=== PATIENT | female | born 1935 | race Caucasian/White ===

== ENCOUNTER 2016-10-21 13:34 | Outpatient (CLI) | payer MEDICARE, OTHER ==
[~2016-10-21] VITALS: Ht 152.4 cm; Wt 59.1 kg
[~2016-10-21 13:34] MED LIST: LASIX20 MG PO; OMEPRAZOLE40 MG PO; POTASSIUM CHLO10 ME1 PO; XANAX XR0.5 MG PO
[2016-10-21 13:55] VITALS: BP 143/62; Ht 152.4 cm; Wt 59.1 kg
--- NOTE | 2016-10-21 14:02 | NUR ---
PROLIA 60MG INJ TO LEFT ARM LOT:[id number] EXP:12/2018
--- NOTE | 2016-10-21 14:15 | NUR ---
DISCHARGE INSTRUCTIONS COMPLETED AND SIGNED.
== END 2016-10-21 14:23 | disposition home or self-care (01) ==
LOC: D.OPS 13:34
DX: M81.0 Age-related osteoporosis without current pathological fracture (principal)

== ENCOUNTER → 2017-03-04 12:40 | Outpatient (CLI) | payer MEDICARE, OTHER ==
[2016-10-21 13:55] VITALS: BMI 25.4
== END | disposition home or self-care (01) ==
LOC: D.CT 12:40
DX: I73.9 Peripheral vascular disease, unspecified (principal)

== ENCOUNTER 2018-08-18 07:40 | Emergency (ER) | payer MEDICARE, OTHER ==
[~2018-08-18] VITALS: Ht 152.4 cm; Wt 56.8 kg
[2018-08-18 07:45] VITALS: Ht 152.4 cm; Wt 56.8 kg
[2018-08-18] MEDS ORDERED: ASPIRIN81 MG PO (07:47)
[2018-08-18] MEDS ORDERED: ZOLOFT25 MG PO (07:48)
[2018-08-18 08:48] LABS: BASOPHILS 0.2 % (0-2); EOSINOPHILS 1.4 % (0-7); HEMATOCRIT 38.7 % (36.0-48.0); IMMATURE GRANULOCYTES 0.1 % (0-5); LYMPHOCYTES 13.6 % (15-50); MCH 32.3 pg (26.0-34.0); MCHC 33.6 g/dL (31.0-37.0); MEAN PLATELET VOLUME 10.5 fL (7.4-10.4); MONOCYTES 7.7 % (2-11); PLATELET COUNT 182 10x3/uL (130-400); RBC 4.03 10x6/uL (4.00-5.40); RDW 13.1 % (11.5-14.5); WBC 8.6 10x3/uL (4.8-10.8)
[2018-08-18 09:01] LABS: ALBUMIN 3.7 g/dL (3.4-5.0); ANION GAP 10.5 mmol/L (8-16); BILIRUBIN - TOTAL 0.38 mg/dL (0.2-1.3); CALCIUM 9.6 mg/dL (8.5-10.1); CARBON DIOXIDE 28.9 mmol/L (21.0-32.0); CREATININE - SERUM 0.8 mg/dL (0.6-1.3); POTASSIUM - SERUM 4.4 mmol/L (3.5-5.1); PROTEIN - SERUM 7.1 g/dL (6.4-8.2)
[2018-08-18 09:16] LABS: APPEARANCE CLEAR (CLEAR); COLOR YELLOW (YELLOW)
[2018-08-18 09:17] LABS: BACTERIA FEW /hpf (NONE SEEN); BILIRUBIN NEGATIVE (NEGATIVE); EPITHELIAL CELLS OCC /hpf (0-5); GLUCOSE NEGATIVE (NEGATIVE); KETONE NEGATIVE (NEGATIVE); MUCUS <1+ /lpf (NONE SEEN); NITRITE NEGATIVE (NEGATIVE); PROTEIN NEGATIVE (NEGATIVE); RED CELLS - URINE OCC /hpf (0-5); UROBILINOGEN NORMAL (NORMAL); WHITE CELLS - URINE OCC /hpf (0-5)
[2018-08-18 10:01] VITALS: BP 148/71
== END 2018-08-18 10:02 | disposition home or self-care (01) ==
LOC: D.ER 07:40
PROVIDERS: Family Medicine
DX: S01.01XA Laceration without foreign body of scalp, initial encounter (principal); W18.2XXA Fall in (into) shower or empty bathtub, initial encounter; Y93.89 Activity, other specified; Y92.012 Bathroom of single-family (private) house as the place of occurrence of the external cause; R51 Headache; M54.2 Cervicalgia

== ENCOUNTER → 2019-03-30 14:30 | Outpatient (CLI) | payer MEDICARE, OTHER ==
[2018-08-18 07:45] VITALS: BMI 24.4
[~2019-03-30 14:30] MED LIST changes: +ASPIRIN81 MG PO; +ZOLOFT25 MG PO
== END | disposition home or self-care (01) ==
LOC: D.MAMMO 11:15
PROVIDERS: ATTEND Family Medicine
DX: Z12.31 Encounter for screening mammogram for malignant neoplasm of breast (principal)

== ENCOUNTER 2019-11-27 22:01 | Inpatient (IN) | payer MEDICARE ==
[~2019-11-27] VITALS: Ht 152.4 cm; Wt 56.2 kg
[2019-11-27 23:06] LABS: BASOPHILS 0.2 % (0-2); EOSINOPHILS 3.2 % (0-7); HEMATOCRIT 35.9 % (36.0-48.0); HEMOGLOBIN 11.9 g/dL (12-16); IMMATURE GRANULOCYTES 0.4 % (0-5); LYMPHOCYTES 9.3 % (15-50); MCH 31.3 pg (26.0-34.0); MCHC 33.1 g/dL (31.0-37.0); MCV 94.5 fL (80.0-100.0); MEAN PLATELET VOLUME 10.2 fL (7.4-10.4); MONOCYTES 5.7 % (2-11); NEUTROPHILS 81.2 % (40-80); PLATELET COUNT 217 10x3/uL (130-400); RDW 12.9 % (11.5-14.5); WBC 11.3 10x3/uL (4.8-10.8)
[2019-11-27 23:13] LABS: APTT 26.2 SECONDS (22.8-39.4); INR 0.9 (0.85-1.17); PROTIME 12.2 SECONDS (11.6-15.0)
[2019-11-27 23:17] LABS: CALC OSMOLALITY 287 mosm/kg (275-300); CALCIUM 8.8 mg/dL (8.5-10.1); CARBON DIOXIDE 28.1 mmol/L (21.0-32.0); CHLORIDE - SERUM 106 mmol/L (98-107); CREATININE - SERUM 0.9 mg/dL (0.6-1.3); POTASSIUM - SERUM 3.9 mmol/L (3.5-5.1); SODIUM 142 mmol/L (136-145); UREA NITROGEN 22 mg/dL (7-18); eGFR NON AFRICAN AMERICAN 63 mL/min (90-120)
[2019-11-27 23:25] LABS: GLUCOSE 142 mg/dL (74-106)
[2019-11-27 23:32] LABS: ALBUMIN 3.2 g/dL (3.4-5.0); ALKALINE PHOSPHATASE 64 U/L (30-120); ALT (SGPT) 22 U/L (10-68); BILIRUBIN - TOTAL 0.26 mg/dL (0.2-1.3); CKMB 1.7 U/L (0.0-3.6); CREATINE KINASE 127 UL (21-215); MAGNESIUM - SERUM 1.8 mg/dL (1.8-2.4); PROTEIN - SERUM 6.3 g/dL (6.4-8.2)
[2019-11-27 23:33] LABS: TROPONIN-I < 0.017 ng/mL (0.000-0.060)
[2019-11-28] VITALS (11 sets, daily range): BP systolic 118–158; BP diastolic 66–89; Ht 152.4 cm; Wt 56.2 kg
[2019-11-28] MEDS ORDERED: PROTONIX40 MG PO (00:29)
[2019-11-28] MEDS ORDERED: CELEXA20 MG PO (00:30)
[2019-11-28] MEDS ORDERED: K-TAB10 MEQ PO (00:30)
[2019-11-28] MEDS ORDERED: ZANAFLEX4 MG PO (00:31)
[2019-11-28] MEDS ORDERED: FUROSEMIDE20 MG PO (00:31)
[2019-11-28] MEDS ORDERED: LIPITOR10 MG PO (00:31)
[2019-11-28] MEDS ORDERED: MIRALAX17 GM PO (00:32)
[2019-11-28] MEDS ORDERED: OS-CAL500 MG PO (00:33)
[2019-11-28] MEDS ORDERED: ASCORBIC ACID500 MG PO (00:33)
[2019-11-28 05:56] LABS: BASOPHILS 0.1 % (0-2); EOSINOPHILS 0.9 % (0-7); HEMATOCRIT 35.1 % (36.0-48.0); HEMOGLOBIN 11.6 g/dL (12-16); IMMATURE GRANULOCYTES 0.2 % (0-5); LYMPHOCYTES 15.6 % (15-50); MCH 31.4 pg (26.0-34.0); MCV 95.1 fL (80.0-100.0); MEAN PLATELET VOLUME 10.2 fL (7.4-10.4); MONOCYTES 9.1 % (2-11); NEUTROPHILS 74.1 % (40-80); PLATELET COUNT 226 10x3/uL (130-400); RBC 3.69 10x6/uL (4.00-5.40); RDW 13.2 % (11.5-14.5); WBC 9.7 10x3/uL (4.8-10.8)
[2019-11-28 06:15] LABS: INR 0.95 (0.85-1.17); PROTIME 12.7 SECONDS (11.6-15.0)
[2019-11-28 06:19] LABS: ANION GAP 10.7 mmol/L (8-16); CALCIUM 8.4 mg/dL (8.5-10.1); CARBON DIOXIDE 28.5 mmol/L (21.0-32.0); CREATININE - SERUM 0.8 mg/dL (0.6-1.3); POTASSIUM - SERUM 4.2 mmol/L (3.5-5.1)
[2019-11-28 09:30] LABS: BILIRUBIN NEGATIVE (NEGATIVE); GLUCOSE NEGATIVE (NEGATIVE); KETONE NEGATIVE (NEGATIVE); NITRITE NEGATIVE (NEGATIVE); SPECIFIC GRAVITY 1.025 (1.005-1.020)
[2019-11-28 09:31] LABS: BACTERIA FEW /hpf (NEGATIVE)
[2019-11-28 09:33] LABS: EPITHELIAL CELLS 0-5 /hpf (0-5); RED CELLS - URINE RARE /hpf (0-5)
[2019-11-28 09:34] LABS: WHITE CELLS - URINE 0-5 /hpf (NEGATIVE)
[2019-11-28 09:55] LABS: % SATURATION 15 % (15-55); IRON 48 ug/dl (35-150); TOTAL IRON BIND CAPACITY 316 ug/dl (260-445); UNSAT IRON BIND CAPACITY 268 ug/dl (150-375)
[2019-11-28 10:21] LABS: FERRITIN 26 ng/mL (3-244); LDH 255 U/L (81-234)
--- NOTE | 2019-11-28 13:14 | OP ---
PATIENT NAME: SAURABH PASCAL MEDICAL RECORD: [id number] :37 LOCATION:D.M3 D.1210 ADMISSION DATE:11/27/19 SURGEON: KRISTIN COCHRAN MD DATE OF OPERATION: 11/28/2019 PREOPERATIVE DIAGNOSIS: Left intertrochanteric hip fracture. POSTOPERATIVE DIAGNOSIS: Left intertrochanteric hip fracture. PROCEDURE: Cephalomedullary fixation of left intertrochanteric hip fracture -- gamma nail. SURGEON: Kristin Cochran MD NANOSCIENCE TECHNICIAN: LANRE Cabello INTRAOPERATIVE COMPLICATIONS: None. SUMMARY OF PATHOLOGIC FINDINGS: Consistent with preoperative radiographs, the patient had intertrochanteric fracture with a small area of reverse obliquity; however, did not feel like it obviated the need for a long gamma nail. Therefore, a short 125 gamma nail was used. OPERATIVE SUMMARY IN DETAIL: After obtaining the appropriate preoperative surgery consent as well as anesthetic consultation, evaluation and clearance, the patient was brought to the operating room and placed on the operating table in a supine position. After adequate general laryngeal mask airway was administered, the patient was placed on the fracture table. All pressure points were well padded. She was secured firmly to the fracture table, right leg was placed in the well leg miramontes, left leg was placed in the traction boot. After the appropriate amount of traction and reduction under fluoroscopy, the left hip was prepped and draped in routine sterile fashion and incision was made above the tip of the greater trochanter. An awl was used to start an entry point. A ball-tipped guidewire was then passed through the femur. Proximal reaming was then followed by nail insertion. The nail was inserted to the appropriate depth and the guide pin for the lag screw was placed on AP and lateral planes, fluoroscopy within 5 mm of the subchondral surface. Appropriate reaming was then followed by placement of the nail. The nail was then compressed. Derotational screw was put in to allow for compression, but not rotation. Having completed this, distal interlocking screw was put in again under fluoroscopy using the interlocking placement guide. Final radiographs were taken and submitted for radiologist review. Wounds were irrigated, closed by LANRE Cabello. Sterile dressings were applied. The patient was awakened and taken to the recovery room in stable condition. All final needle and sponge counts were correct. TRANSINT:[id number] Voice Confirmation ID: [id number] DOCUMENT ID: [id number] OPERATIVE REPORT [id number] SAURABH PASCAL MD, KRISTIN JACKSON at 1314 CC: [id number] DICTATION DATE: 11/28/1944 DEVOPS ARCHITECT: 11/28/19 1307 ADM IN [facility] [address] [place] [address]
[2019-11-28] MEDS ORDERED: ANORO ELLIPTA1 EACH INH (18:15)
[2019-11-29 00:30] VITALS: BP 134/69
[2019-11-29 04:50] VITALS: BP 142/81
[2019-11-29 06:39] LABS: BASOPHILS 0.1 % (0-2); EOSINOPHILS 0.1 % (0-7); HEMATOCRIT 30.6 % (36.0-48.0); IMMATURE GRANULOCYTES 0.4 % (0-5); LYMPHOCYTES 16.8 % (15-50); MCH 31.3 pg (26.0-34.0); MCHC 32.7 g/dL (31.0-37.0); MCV 95.9 fL (80.0-100.0); MEAN PLATELET VOLUME 10.7 fL (7.4-10.4); MONOCYTES 9.7 % (2-11); NEUTROPHILS 72.9 % (40-80); PLATELET COUNT 215 10x3/uL (130-400); RBC 3.19 10x6/uL (4.00-5.40); RDW 13.2 % (11.5-14.5); WBC 9.9 10x3/uL (4.8-10.8)
[2019-11-29 06:51] LABS: ANION GAP 9.5 mmol/L (8-16); CALCIUM 8.2 mg/dL (8.5-10.1); CARBON DIOXIDE 28.5 mmol/L (21.0-32.0); CREATININE - SERUM 0.9 mg/dL (0.6-1.3)
[2019-11-29 07:22] VITALS: BP 151/71
--- NOTE | 2019-11-29 10:06 | MORECARE ---
CASE MANAGEMENT DISCHARGE SUMMARY PATIENT: SAURABH PASCAL UNIT: [id number] ADM DATE: 11/27/19 AGE: 84 : 36 SEX: F ROOM/BED: D.1210 AUTHOR: ZULEYMA,DOC PHYSICIAN: REFERRING PHYSICIAN: KRISTIN COCHRAN MD DATE OF SERVICE: 11/29/19 Discharge Plan Patient Name: SAURABH PASCAL Facility: [facility]:[place] : 1935 Planned Disposition: Anticipated Discharge Date: Discharge Date: Expected LOS: Initial Reviewer: [email or web address] Initial Review Date: 11/28/2019 Generated: 11/29/19 11:05 am Comments DCP- Discharge Planning Updated by [email or web address]: Kailey Lara on 11/29/19 9:[address] CM met with patient to discuss initial discharge planning. Patient is in agreement to proceed with the assessment. Patient reports that she lives at home alone, independently with her dog and cat. Patient is alert/oriented. Stairs/steps: 0. PCP: Dr. Velázquez. Pharmacy: [facility]. HHS: No. DME: Walker, Cane, Shower bench. Patient gives permission to speak with sister. Emergency contact: Bianca Mendez (sister) [phone]. 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 Patient states she has no one else who can come into the home to assist her. CM discussed the availability of HH, Rehab, DME services. Patient is unsure of DC needs at this time. States "It's according to how I do when I get up." Patient denies being hospitalized within the past 30 days. Patient denies the use of community resources QUARRY SUPERVISOR DIMENSION STONE. Transportation at time of discharge: Bianca Mendez (sister). CM will follow and assist PRN with further DC plans. DCPIA - Discharge Planning Initial Assessment Updated by [email or web address]: Kailey Lara on 11/29/19 10:03 am * Is the patient Alert and Oriented? Yes * How many steps to enter\\exit or inside your home? * PCP Dr. 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 Yes * Community resources currently utilized None * Additional services required to return to the preadmission environment? Yes * Can the patient safely return to the preadmission environment? No * Has this patient been hospitalized within the prior 30 days at any hospital? No Patient Name: SAURABH PASCAL Page [id number] at 1006 All edits/amendments must be made on the electronic document DICTATION DATE: 11/29/19 100 COATING OPERATOR: LUDY 11/29/19 100 RPT#: [id number] DC DATE: STATUS: ADM IN [facility] [address] [place] [address] END OF REPORT
--- NOTE | 2019-11-29 10:15 | MORECARE ---
CASE MANAGEMENT DISCHARGE SUMMARY PATIENT: SAURABH PASCAL UNIT: [id number] ADM DATE: 11/27/19 AGE: 84 : 36 SEX: F ROOM/BED: D.1210 AUTHOR: ZULEYMA,DOC PHYSICIAN: REFERRING PHYSICIAN: KRISTIN COCHRAN MD DATE OF SERVICE: 11/29/19 Discharge Plan Patient Name: SAURABH PASCAL Facility: [facility]:[place] : 1935 Planned Disposition: Anticipated Discharge Date: Discharge Date: Expected LOS: Initial Reviewer: [email or web address] Initial Review Date: 11/28/2019 Generated: 11/29/19 11:14 am Comments DCP- Discharge Planning Updated by [email or web address]: Kailey Lara on 11/29/19 9:[address] CM met with patient to discuss initial discharge planning. Patient is in agreement to proceed with the assessment. Patient reports that she lives at home alone, independently with her dog and cat. Patient is alert/oriented. Stairs/steps: 0. PCP: Dr. Velázquez. Pharmacy: [facility]. HHS: No. DME: Walker, Cane, Shower bench. Patient gives permission to speak with sister. Emergency contact: Bianca Mendez (sister) [phone]. 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 Patient states she has no one else who can come into the home to assist her. CM discussed the availability of HH, Rehab, DME services. Patient is unsure of DC needs at this time. States "It's according to how I do when I get up." Patient denies being hospitalized within the past 30 days. Patient denies the use of community resources PICTURE FRAMES INSPECTOR. Transportation at time of discharge: Bianca Mendez (sister). CM will follow and assist PRN with further DC plans. DCPIA - Discharge Planning Initial Assessment Updated by [email or web address]: Kailey Lara on 11/29/19 10:03 am * Is the patient Alert and Oriented? Yes * How many steps to enter\\exit or inside your home? * PCP Dr. 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 Yes * Community resources currently utilized None * Additional services required to return to the preadmission environment? Yes * Can the patient safely return to the preadmission environment? No * Has this patient been hospitalized within the prior 30 days at any hospital? No Last DP export: 11/29/19 9:06 am Patient Name: SAURABH PASCAL Page [id number] at 1015 All edits/amendments must be made on the electronic document DICTATION DATE: 11/29/19 1014 MASTER CARPENTER: LUDY 11/29/19 1014 RPT#: [id number] DC DATE: STATUS: ADM IN [facility] [address] [place] [address] END OF REPORT
[2019-11-29 12:08] VITALS: BP 150/68
[2019-11-29 16:12] VITALS: BP 126/80
--- NOTE | 2019-11-29 17:34 | MORECARE ---
CASE MANAGEMENT DISCHARGE SUMMARY PATIENT: EMANI PASCAL UNIT: [id number] ADM DATE: 11/27/19 AGE: 84 : 36 SEX: F ROOM/BED: D.1210 AUTHOR: ZULEYMA,DOC PHYSICIAN: REFERRING PHYSICIAN: KRISTIN COCHRAN MD DATE OF SERVICE: 11/29/19 Discharge Plan Patient Name: EMANI PASCAL Facility: [facility]:[place] : 1935 Planned Disposition: Anticipated Discharge Date: Discharge Date: Expected LOS: Initial Reviewer: [email or web address] Initial Review Date: 11/28/2019 Generated: 11/29/19 6:33 pm Comments DCP- Discharge Planning Updated by [email or web address]: Kailey Lara on 11/29/19 4:[address] CM met with patient again regarding therapy options. Patient states "I would like to stay here if my insurance will cover it." Patient's insurance will require prior-authorization. CM left a VM for Kristy in rehab. DCP- Discharge Planning Updated by [email or web address]: Kailey Lara on 11/29/19 9:[address] CM met with patient to discuss initial discharge planning. Patient is in agreement to proceed with the assessment. Patient reports that she lives at home alone, independently with her dog and cat. Patient is alert/oriented. Stairs/steps: 0. PCP: Dr. Velázquez. Pharmacy: [facility]. HHS: No. DME: Walker, Cane, Shower bench. Patient gives permission to speak with sister. Emergency contact: Bianca Mendez (sister) [phone]. 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 Patient states she has no one else who can come into the home to assist her. CM discussed the availability of HH, Rehab, DME services. Patient is unsure of DC needs at this time. States "It's according to how I do when I get up." Patient denies being hospitalized within the past 30 days. 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 Transportation at time of discharge: Bianca Mendez (sister). CM will follow and assist PRN with further DC plans. DCPIA - Discharge Planning Initial Assessment Updated by [email or web address]: Kailey Lara on 11/29/19 10:03 am * Is the patient Alert and Oriented? Yes * How many steps to enter\\exit or inside your home? * PCP Dr. Velázquez * Pharmacy [facility] for [facility] * Preadmission Environment Home Alone * ADLs Independent * Equipment Cane * Other Equipment Walker, Shower chair, cane * List name and contact numbers for known caregivers / representatives who currently or will assist patient after discharge: Bianca Mendez (sister) [phone] * Verbal permission to speak to the caregivers and representatives has been obtained from the patient. Yes * Community resources currently utilized None * Additional services required to return to the preadmission environment? Yes * Can the patient safely return to the preadmission environment? No * Has this patient been hospitalized within the prior 30 days at any hospital? No Coverage Notice Reviewer: [id number] - Kailey Lara Notice Issued Date-Time: 11/29/2019 17:27 Notice Type: Patient Choice Letter Notice Delivered To: Patient Relationship to Patient: Self All Source Intelligence Analyst Name: Emani Pascal Delivery Method: HAND - Hand Delivered She Days: Prior Verbal Notification: Recipient Understood Notice: Yes Recipient Signature: Med Rec Note Co-signed by Attending: Coverage Notice Comment: Patient choice signed for SENIOR LEAD JAVA DEVELOPER Rehab. Last DP export: 11/29/19 9:15 am Patient Name: EMANI PASCAL Page 31289 at 1734 All edits/amendments must be made on the electronic document DICTATION DATE: 11/29/191732 CATALYST UNIT OPERATOR: LUDY 11/29/191732 RPT#: [id number] DC DATE: STATUS: ADM IN [facility] [address] [place] [address] END OF REPORT
[2019-11-29 20:00] VITALS: BP 138/59
[2019-11-30 00:01] VITALS: BP 99/45
[2019-11-30 04:38] VITALS: BP 122/68
[2019-11-30 07:31] VITALS: BP 152/65
[2019-11-30 09:00] LABS: BASOPHILS 0.2 % (0-2); EOSINOPHILS 1.8 % (0-7); HEMATOCRIT 27.7 % (36.0-48.0); HEMOGLOBIN 9.1 g/dL (12-16); IMMATURE GRANULOCYTES 0.3 % (0-5); MCH 31.3 pg (26.0-34.0); MCHC 32.9 g/dL (31.0-37.0); MCV 95.2 fL (80.0-100.0); MEAN PLATELET VOLUME 10.9 fL (7.4-10.4); MONOCYTES 8.6 % (2-11); NEUTROPHILS 73.1 % (40-80); PLATELET COUNT 177 10x3/uL (130-400); RBC 2.91 10x6/uL (4.00-5.40); RDW 13.1 % (11.5-14.5); WBC 9.7 10x3/uL (4.8-10.8)
[2019-11-30 09:03] LABS: ANION GAP 11.4 mmol/L (8-16); CALCIUM 8.3 mg/dL (8.5-10.1); CARBON DIOXIDE 27.6 mmol/L (21.0-32.0); CREATININE - SERUM 0.8 mg/dL (0.6-1.3)
[2019-11-30 11:52] VITALS: BP 114/66
--- NOTE | 2019-11-30 14:35 | MORECARE ---
CASE MANAGEMENT DISCHARGE SUMMARY PATIENT: EMANI PASCAL UNIT: [id number] ADM DATE: 11/27/19 AGE: 84 : 36 SEX: F ROOM/BED: D.1210 AUTHOR: ZULEYMA,DOC PHYSICIAN: REFERRING PHYSICIAN: KRISTIN COCHRAN MD DATE OF SERVICE: 11/30/19 Discharge Plan Patient Name: EMANI PASCAL Facility: [facility]:[place] : 1935 Planned Disposition: Anticipated Discharge Date: Discharge Date: Expected LOS: Initial Reviewer: [email or web address] Initial Review Date: 11/28/2019 Generated: 11/30/19 3:34 pm Comments DCP- Discharge Planning Updated by [email or web address]: Kailey Lara on 11/29/19 4:[address] CM met with patient again regarding therapy options. Patient states "I would like to stay here if my insurance will cover it." Patient's insurance will require prior-authorization. CM left a VM for Kristy in rehab. DCP- Discharge Planning Updated by [email or web address]: Kailey Lara on 11/29/19 9:[address] CM met with patient to discuss initial discharge planning. Patient is in agreement to proceed with the assessment. Patient reports that she lives at home alone, independently with her dog and cat. Patient is alert/oriented. Stairs/steps: 0. PCP: Dr. Velázquez. Pharmacy: [facility]. HHS: No. DME: Walker, Cane, Shower bench. Patient gives permission to speak with sister. Emergency contact: Bianca Mendez (sister) [phone]. 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 Patient states she has no one else who can come into the home to assist her. CM discussed the availability of HH, Rehab, DME services. Patient is unsure of DC needs at this time. States "It's according to how I do when I get up." Patient denies being hospitalized within the past 30 days. 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 Transportation at time of discharge: Bianca Mendez (sister). CM will follow and assist PRN with further DC plans. DCPIA - Discharge Planning Initial Assessment Updated by [email or web address]: Kailey Lara on 11/29/19 10:03 am * Is the patient Alert and Oriented? Yes * How many steps to enter\\exit or inside your home? * PCP Dr. Velázquez * Pharmacy [facility] for intermediate * Preadmission Environment Home Alone * ADLs Independent * Equipment Cane * Other Equipment Walker, Shower chair, cane * List name and contact numbers for known caregivers / representatives who currently or will assist patient after discharge: Bianca Mendez (sister) [phone] * Verbal permission to speak to the caregivers and representatives has been obtained from the patient. Yes * Community resources currently utilized None * Additional services required to return to the preadmission environment? Yes * Can the patient safely return to the preadmission environment? No * Has this patient been hospitalized within the prior 30 days at any hospital? No Coverage Notice Reviewer: [email or web address] Erin Lara Notice Issued Date-Time: 11/29/2019 17:27 Notice Type: Patient Choice Letter Notice Delivered To: Patient Relationship to Patient: Self Floor Surfacer Name: Emani Pascal Delivery Method: HAND - Hand Delivered She Days: Prior Verbal Notification: Recipient Understood Notice: Yes Recipient Signature: Med Rec Note Co-signed by Attending: Coverage Notice Comment: Patient choice signed for COLLAR POINTER Rehab. Reviewer: [email or web address] Erin Lara Notice Issued Date-Time: 11/30/2019 14:30 Notice Type: IM Discharge Notice Notice Delivered To: Patient Relationship to Patient: Self Floor Surfacer Name: Emani Pascal Delivery Method: - She Days: Prior Verbal Notification: Recipient Understood Notice: Recipient Signature: Med Rec Note Co-signed by Attending: Coverage Notice Comment: Last DP export: 11/29/19 4:34 pm Patient Name: EMANI PASCAL Page 55391 at 1435 All edits/amendments must be made on the electronic document DICTATION DATE: 11/30/191433 MILL HAND PLATE MILL: LUDY 11/30/191433 RPT#: [id number] DC DATE: STATUS: ADM IN [facility] [address] [place] [address] END OF REPORT
--- NOTE | 2019-11-30 16:12 | MORECARE ---
CASE MANAGEMENT DISCHARGE SUMMARY PATIENT: EMANI PASCAL UNIT: [id number] ADM DATE: 11/27/19 AGE: 84 : 36 SEX: F ROOM/BED: D.1210 AUTHOR: ZULEYMA,DOC PHYSICIAN: REFERRING PHYSICIAN: KRISTIN COCHRAN MD DATE OF SERVICE: 11/30/19 Discharge Plan Patient Name: EMANI PASCAL Facility: [facility]:[place] : 1935 Planned Disposition: Anticipated Discharge Date: Discharge Date: Expected LOS: Initial Reviewer: [id number] Initial Review Date: 11/28/2019 Generated: 11/30/19 5:12 pm Comments DCP- Discharge Planning Updated by [email or web address]: Kailey Lara on 11/29/19 4:[address] CM met with patient again regarding therapy options. Patient states "I would like to stay here if my insurance will cover it." Patient's insurance will require prior-authorization. CM left a VM for Kristy in rehab. DCP- Discharge Planning Updated by [id number]: Kailey Lara on 11/29/19 9:[address] CM met with patient to discuss initial discharge planning. Patient is in agreement to proceed with the assessment. Patient reports that she lives at home alone, independently with her dog and cat. Patient is alert/oriented. Stairs/steps: 0. PCP: Dr. Velázquez. Pharmacy: [facility]. HHS: No. DME: Walker, Cane, Shower bench. Patient gives permission to speak with sister. Emergency contact: Bianca Mendez (sister) [phone]. 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 Patient states she has no one else who can come into the home to assist her. CM discussed the availability of HH, Rehab, DME services. Patient is unsure of DC needs at this time. States "It's according to how I do when I get up." Patient denies being hospitalized within the past 30 days. Patient denies the use of community resources PSYCHIATRIC TECHNICIAN. Transportation at time of discharge: Bianca Mendez (sister). CM will follow and assist PRN with further DC plans. DCPIA - Discharge Planning Initial Assessment Updated by [email or web address]: Kailey Lara on 11/29/19 10:03 am * Is the patient Alert and Oriented? Yes * How many steps to enter\\exit or inside your home? * PCP Dr. Velázquez * Pharmacy [facility] for half-way * Preadmission Environment Home Alone * ADLs Independent * Equipment Cane * Other Equipment Walker, Shower chair, cane * List name and contact numbers for known caregivers / representatives who currently or will assist patient after discharge: Bianca Mendez (sister) [phone] * Verbal permission to speak to the caregivers and representatives has been obtained from the patient. Yes * Community resources currently utilized None * Additional services required to return to the preadmission environment? Yes * Can the patient safely return to the preadmission environment? No * Has this patient been hospitalized within the prior 30 days at any hospital? No Coverage Notice Reviewer: [email or web address] Erin Lara Notice Issued Date-Time: 11/29/2019 17:27 Notice Type: Patient Choice Letter Notice Delivered To: Patient Relationship to Patient: Self Lab Scientist Name: Emani Pascal Delivery Method: HAND - Hand Delivered She Days: Prior Verbal Notification: Recipient Understood Notice: Yes Recipient Signature: Med Rec Note Co-signed by Attending: Coverage Notice Comment: Patient choice signed for MARKER MACHINE ATTENDANT Rehab. Reviewer: [email or web address] Erin Lara Notice Issued Date-Time: 11/30/2019 15:31 Notice Type: IM Discharge Notice Notice Delivered To: Patient Relationship to Patient: Self Lab Scientist Name: Emani Pascal Delivery Method: - She Days: Prior Verbal Notification: Recipient Understood Notice: Recipient Signature: Med Rec Note Co-signed by Attending: Coverage Notice Comment: Last DP export: 11/30/19 1:35 pm Patient Name: EMANI PASCAL Page [id number] at 1612 All edits/amendments must be made on the electronic document DICTATION DATE: 11/30/19 161 SENIOR GAMES TECHNICIAN: LUDY 11/30/191611 RPT#: [id number] DC DATE: STATUS: ADM IN [facility] [address] [place] [address] END OF REPORT
--- NOTE | 2019-11-30 16:23 | MORECARE ---
CASE MANAGEMENT DISCHARGE SUMMARY PATIENT: EMANI PASCAL UNIT: [id number] ADM DATE: 11/27/19 AGE: 84 : 36 SEX: F ROOM/BED: D.1210 AUTHOR: ZULEYMA,DOC PHYSICIAN: REFERRING PHYSICIAN: KRISTIN COCHRAN MD DATE OF SERVICE: 11/30/19 Discharge Plan Patient Name: EMANI PASCAL Facility: [facility]:[place] : 1935 Planned Disposition: Anticipated Discharge Date: Discharge Date: Expected LOS: Initial Reviewer: [email or web address] Initial Review Date: 11/28/2019 Generated: 11/30/19 5:22 pm Comments DCP- Discharge Planning Updated by [id number]: Kailey Lara on 11/30/19 3:[address] CM contacted Megan, with [facility], regarding insurance prior authorization, all the information has been faxed in, now just waiting on an authorization. DCP- Discharge Planning Updated by [email or web address]: Kailey Lara on 11/29/19 4:[address] CM met with patient again regarding therapy options. Patient states "I would like to stay here if my insurance will cover it." Patient's insurance will require prior-authorization. CM left a for Kristy in rehab. DCP- Discharge Planning Updated by [id number]: Kailey Lara on 11/29/19 9:[address] CM met with patient to discuss initial discharge planning. Patient is in agreement to proceed with the assessment. Patient reports that she lives at home alone, independently with her dog and cat. Patient is alert/oriented. Stairs/steps: 0. PCP: Dr. Velázquez. Pharmacy: [facility]. HHS: No. DME: Walker, Cane, Shower bench. Patient gives permission to speak with sister. Emergency contact: Bianca Mendez (sister) [phone]. 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 Patient states she has no one else who can come into the home to assist her. CM discussed the availability of HH, Rehab, DME services. Patient is unsure of DC needs at this time. States "It's according to how I do when I get up." Patient denies being hospitalized within the past 30 days. Patient denies the use of community resources HOUSING PROPERTY MANAGER. Transportation at time of discharge: Bianca Mendez (sister). CM will follow and assist PRN with further DC plans. DCPIA - Discharge Planning Initial Assessment Updated by [email or web address]: Kailey Lara on 11/29/19 10:03 am * Is the patient Alert and Oriented? Yes * How many steps to enter\\exit or inside your home? * PCP Dr. Velázquez * Pharmacy [facility] for [facility] * Preadmission Environment Home Alone * ADLs Independent * Equipment Cane * Other Equipment Walker, Shower chair, cane * List name and contact numbers for known caregivers / representatives who currently or will assist patient after discharge: Bianca Mendez (sister) [phone] * Verbal permission to speak to the caregivers and representatives has been obtained from the patient. Yes * Community resources currently utilized None * Additional services required to return to the preadmission environment? Yes * Can the patient safely return to the preadmission environment? No * Has this patient been hospitalized within the prior 30 days at any hospital? No Coverage Notice Reviewer: [email or web address] Erin Lara Notice Issued Date-Time: 11/29/2019 17:27 Notice Type: Patient Choice Letter Notice Delivered To: Patient Relationship to Patient: Self Electromechanical Technician Name: Emani Pascal Delivery Method: HAND - Hand Delivered She Days: Prior Verbal Notification: Recipient Understood Notice: Yes Recipient Signature: Med Rec Note Co-signed by Attending: Coverage Notice Comment: Patient choice signed for [facility]. Reviewer: [id number] Erin Lara Notice Issued Date-Time: 11/30/2019 15:31 Notice Type: IM Discharge Notice Notice Delivered To: Patient Relationship to Patient: Self Electromechanical Technician Name: Emani Pascal Delivery Method: - She Days: Prior Verbal Notification: Recipient Understood Notice: Recipient Signature: Med Rec Note Co-signed by Attending: Coverage Notice Comment: Last DP export: 11/30/19 3:12 pm Patient Name: EMANI PASCAL Page [id number] at 1623 All edits/amendments must be made on the electronic document DICTATION DATE: 11/30/191621 DIRECTOR COMMUNICATIONS: LUDY 11/30/191621 RPT#: [id number] DC DATE: STATUS: ADM IN [facility] [address] [place] [address] END OF REPORT
[2019-11-30 17:45] VITALS: BP 137/59
[2019-11-30 19:35] VITALS: BP 156/54
[2019-12-01 00:30] VITALS: BP 122/66
[2019-12-01 05:01] VITALS: BP 112/49
[2019-12-01 07:20] VITALS: BP 139/55
[2019-12-01 07:52] LABS: BASOPHILS 0.3 % (0-2); EOSINOPHILS 2.7 % (0-7); HEMOGLOBIN 8.7 g/dL (12-16); IMMATURE GRANULOCYTES 0.3 % (0-5); LYMPHOCYTES 15.6 % (15-50); MCH 31.8 pg (26.0-34.0); MCHC 33.5 g/dL (31.0-37.0); MCV 94.9 fL (80.0-100.0); MEAN PLATELET VOLUME 10.5 fL (7.4-10.4); MONOCYTES 9.3 % (2-11); NEUTROPHILS 71.8 % (40-80); PLATELET COUNT 183 10x3/uL (130-400); RBC 2.74 10x6/uL (4.00-5.40); RDW 12.9 % (11.5-14.5); WBC 7.5 10x3/uL (4.8-10.8)
[2019-12-01 07:54] LABS: CALC OSMOLALITY 279 mosm/kg (275-300); CALCIUM 7.9 mg/dL (8.5-10.1); CARBON DIOXIDE 28.9 mmol/L (21.0-32.0); CHLORIDE - SERUM 105 mmol/L (98-107); CREATININE - SERUM 0.7 mg/dL (0.6-1.3); GLUCOSE 110 mg/dL (74-106); POTASSIUM - SERUM 3.9 mmol/L (3.5-5.1); SODIUM 140 mmol/L (136-145); UREA NITROGEN 12 mg/dL (7-18); eGFR NON AFRICAN AMERICAN 85 mL/min (90-120)
[2019-12-01] MEDS ORDERED: ELIQUIS2.5 MG PO (10:26)
[2019-12-01] MEDS ORDERED: HYDROCODON-ACE1 EA10 PO (10:26)
--- NOTE | 2019-12-01 17:15 | MORECARE ---
CASE MANAGEMENT DISCHARGE SUMMARY PATIENT: EMANI PASCAL UNIT: [id number] ADM DATE: 11/27/19 AGE: 84 : 36 SEX: F ROOM/BED: D.1210 AUTHOR: ZULEYMA,DOC PHYSICIAN: REFERRING PHYSICIAN: KRISTIN COCHRAN MD DATE OF SERVICE: 12/01/19 Discharge Plan Patient Name: EMANI PASCAL Facility: [facility]:[place] : 1935 Planned Disposition: Anticipated Discharge Date: Discharge Date: 12/01/2019 Expected LOS: Initial Reviewer: [email or web address] Initial Review Date: 11/28/2019 Generated: 12/01/19 6:15 pm Comments DCP- Discharge Planning Updated by [email or web address]: Kailey Lara on 11/30/19 3:[address] CM contacted Megan, with [facility], regarding insurance prior authorization, all the information has been faxed in, now just waiting on an authorization. DCP- Discharge Planning Updated by [email or web address]: Kailey Lara on 11/29/19 4:[address] CM met with patient again regarding therapy options. Patient states "I would like to stay here if my insurance will cover it." Patient's insurance will require prior-authorization. CM left a VM for Kristy in rehab. DCP- Discharge Planning Updated by [email or web address]: Kailey Lara on 11/29/19 9:[address] CM met with patient to discuss initial discharge planning. Patient is in agreement to proceed with the assessment. Patient reports that she lives at home alone, independently with her dog and cat. Patient is alert/oriented. Stairs/steps: 0. PCP: Dr. Velázquez. Pharmacy: [facility]. HHS: No. DME: Walker, Cane, Shower bench. Patient gives permission to speak with sister. Emergency contact: Bianca Mendez (sister) [phone]. 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 Patient states she has no one else who can come into the home to assist her. CM discussed the availability of HH, Rehab, DME services. Patient is unsure of DC needs at this time. States "It's according to how I do when I get up." Patient denies being hospitalized within the past 30 days. Patient denies the use of community resources DOOR OPENER. Transportation at time of discharge: Bianca Mendez (sister). CM will follow and assist PRN with further DC plans. DCPIA - Discharge Planning Initial Assessment Updated by [id number]: Kailey Lara on 11/29/19 10:03 am * Is the patient Alert and Oriented? Yes * How many steps to enter\\exit or inside your home? * PCP Dr. 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 Yes * Community resources currently utilized None * Additional services required to return to the preadmission environment? Yes * Can the patient safely return to the preadmission environment? No * Has this patient been hospitalized within the prior 30 days at any hospital? No Coverage Notice Reviewer: [email or web address] Erin Lara Notice Issued Date-Time: 11/29/2019 17:27 Notice Type: Patient Choice Letter Notice Delivered To: Patient Relationship to Patient: Self Roll Sheeting Cutter Name: Emani Pascal Delivery Method: HAND - Hand Delivered She Days: Prior Verbal Notification: Recipient Understood Notice: Yes Recipient Signature: Med Rec Note Co-signed by Attending: Coverage Notice Comment: Patient choice signed for [facility]. Reviewer: [email or web address] Erin Lara Notice Issued Date-Time: 11/30/2019 15:31 Notice Type: IM Discharge Notice Notice Delivered To: Patient Relationship to Patient: Self Roll Sheeting Cutter Name: Emani Pascal Delivery Method: - She Days: Prior Verbal Notification: Recipient Understood Notice: Recipient Signature: Med Rec Note Co-signed by Attending: Coverage Notice Comment: Last DP export: 11/30/19 3:23 pm Patient Name: EMANI PASCAL Page 53710 at 1715 All edits/amendments must be made on the electronic document DICTATION DATE: 12/01/191714 PILL PACKER: LUDY 12/01/191714 RPT#: [id number] DC DATE:12/01/19 STATUS: DIS IN [facility] [address] [place] [address] END OF REPORT
== END 2019-12-01 15:09 | DRG 482 ==
LOC: D.ER 22:01 → D.M3 23:08
PROVIDERS: Family Medicine; ADMIT Orthopaedic Surgery; ATTEND Orthopaedic Surgery
PROC: 0QHC36Z Insertion of Intramedullary Internal Fixation Device into Left Lower Femur, Percutaneous Approach (ICD-10-PCS; principal; 2019-11-28 12:45)
DX: S72.142A Displaced intertrochanteric fracture of left femur, initial encounter for closed fracture (principal); W18.30XA Fall on same level, unspecified, initial encounter; J44.9 Chronic obstructive pulmonary disease, unspecified; I10 Essential (primary) hypertension; R33.9 Retention of urine, unspecified; D64.9 Anemia, unspecified

== ENCOUNTER 2019-12-01 14:50 | Inpatient (IN) | payer MEDICARE ==
[~2019-12-01] VITALS: Ht 152.4 cm; Wt 56.2 kg
--- NOTE | ~2019-12-01 | RHP ---
PATIENT: SAURABH PASCAL MEDICAL RECORD: [id number] ACCOUNT: [id number] [facility] ADMISSION DATE: 12/01/19 REHABILITATION HISTORY AND PHYSICAL EXAMINATION POST ADMISSION PHYSICIAN EXAMINATION POST ADMISSION PHYSICAL EXAMINATION AND HISTORY AND PHYSICAL DATE OF ADMISSION: 12/01/2019 ADMITTING DIAGNOSIS: Left hip fracture. HISTORY OF PRESENT ILLNESS: The patient is an 84-year-old female patient, who presented to the Emergency Room on November 26 with left hip pain after falling to the floor from a standing position. She had pain of 9/10. She had aching pressure. It was exacerbated by movement or any type of palpation. The patient had x-rays, which showed a left intertrochanteric fracture. She was admitted to Dr. Fitzgerald. She had a cephalomedullary fixation of the left intertrochanteric hip fracture with a gamma nail. Postop, she had a little bit of blood loss anemia, urinary retention, and hypertension. She has got a history of vertigo and leaky valve, COPD, arthritis, and depression. Previously, she was living alone and independent with ADLs and mobility. Currently, she is mod-to-max assist for ADLs and mobility. She has some upper extremity weakness. The patient has toe-touch weightbearing status, poor balance making it difficult to maintain safety and she is a fall risk. She wants to return back home at her prior level of functioning. Comorbidities include left intertrochanteric hip fracture, urinary retention, hypertension, hyperglycemia, acute blood loss anemia, scalp laceration, musculoskeletal pain, leaky valve, COPD, arthritis, and depression. PAST MEDICAL HISTORY: Significant for cataracts. She has got a history of a leaky valve. She has got a history of COPD, arthritis, osteoporosis, scoliosis, depression. PAST SURGICAL HISTORY: Includes cataract surgery, bilateral left knee scope. She has had rhinoplasty. She has had a tubal ligation, ORIF of her right wrist, and knee replacement. ALLERGIES: CODEINE. CURRENT MEDICATIONS: Include potassium 10 mEq daily, polyethylene glycol 17 grams in 8 ounces of water daily, Lasix 20 mg daily, citalopram 20 mg daily, calcium carbonate 1000 mg daily, aspirin chewable 81 mg daily, vitamin C 500 mg daily, Tums 500 mg every 4 hours p.r.n., Protonix 40 mg daily, Zanaflex 4 mg at bedtime, atorvastatin 10 mg daily, Eliquis 2.5 mg b.i.d., Brovana 15 mcg b.i.d., and Waverly 10/325 one tab every 4 hours p.r.n. HABITS: No current alcohol or tobacco use. FAMILY HISTORY: Noncontributory. SOCIAL HISTORY: The patient hopes to return back home and get back to her prior level of functioning. REVIEW OF SYSTEMS: HISTORY AND PHYSICAL [id number] SAURABH PASCAL GENERAL: Does complain of little weakness and fatigue. HEENT: Denies cold, cough, or congestion. CARDIOVASCULAR: Denies chest pain. PHYSICAL EXAMINATION: VITAL SIGNS: Stable, afebrile. GENERAL: Elderly female, in no acute distress upon exam. HEENT: Normocephalic and atraumatic. Mucosa moist. NECK: Supple. No lymphadenopathy. LUNGS: Clear in the upper tuttle. HEART: Regular rate and rhythm. She does have a holosystolic murmur. ABDOMEN: Soft, benign, and nondistended. Positive bowel sounds times 4. EXTREMITIES: No clubbing, cyanosis or edema. NEUROLOGIC: She is intact. Her postop area looks pretty good. LABORATORY DATA: White count 7.5, H&H 8.7 and 26.4, and platelet count is 199. Sodium 141, potassium 4.0, BUN and creatinine of 12 and 0.6, and blood sugar is noted to be 110. ASSESSMENT: This is an 84-year-old female patient admitted to the rehab with a working diagnosis of left hip fracture, status post open reduction and internal fixation. The patient has potential to make improvement. We will institute the multidisciplinary therapies including, but not limited to, physical, occupational, respiratory, speech, nutritional services, prosthetics, and orthotics. Given her complex medical condition and risks for more complications, rehabilitation services cannot be provided at a lower level of care such as a skilled nurse facility. PLAN: 1. Admit to [facility] for an inpatient therapy to include the following disciplines; A. Physical therapy to improve gait, all transfer skills, and bed mobility to modified independent level. B. Occupational therapy to improve activities of daily living. C. Case management to assist with discharge planning and placement options. D. Nutrition to assist with nutritional needs. E. Rehabilitation nursing to assist in monitoring the patient's underlying medical conditions and to assist with any type of bowel or bladder management. 2. The patient's current medications and medical care will be continued. 3. The patient will be placed on standard fall precautions. 4. The patient's estimated length of stay is approximately 7-10 days. 5. We will discuss the patient during care team staff meeting this week. TRANSINT:[id number] Voice Confirmation ID: [id number] DOCUMENT ID: [id number] SUSANNAH notes whether there has been none or any medical/functional change since admission: - No change since preadmission screen. SUSANNAH attests patient continues to be appropriate for IRF: - Continues to be appropriate. HISTORY AND PHYSICAL [id number] SAURABH PASCAL JOHN SCOTT MD CC: [id number] DICTATION DATE: 12/02/19 1144 HSPT TUTOR: 12/02/19 1307 ADM IN [place] [id number] [place] [id number]
[~2019-12-01 14:50] MED LIST changes: +ANORO ELLIPTA1 EACH INH; +ASCORBIC ACID500 MG PO; +CELEXA20 MG PO; +ELIQUIS2.5 MG PO; +FUROSEMIDE20 MG PO; +HYDROCODON-ACE1 EA10 PO; +K-TAB10 MEQ PO; +LIPITOR10 MG PO; +MIRALAX17 GM PO; +OS-CAL500 MG PO; +PROTONIX40 MG PO; +ZANAFLEX4 MG PO
[2019-12-01 15:29] VITALS: BP 142/63; BMI 24.2
--- NOTE | 2019-12-01 18:10 | NUR ---
SITTING UP IN BED IN ROOM EATING SUPPER, SISTER IN ROOM WITH HER. PT DENIES INCREASED PAIN. HAS TWO SMALL DSG ON LATERAL SIDE OF LLE, THIGH. PEDAL PULSES PRESENT X2. CALL LIGHT IN REACH
--- NOTE | 2019-12-01 19:28 | NUR ---
PT LYING IN BED WATCHING TV. CL IN REACH. DENIES NEEDS OR PAIN AT THIS TIME. BED IN LOW SIDE RAILS X2. A/O X4. RESP EVEN AND UNLABORED. LUNGS CLEAR. BOWEL ACTIVE X4. WILL CONTINUE TO MONITOR. DRESSING INTACT TO LEFT HIP.
[2019-12-01 22:57] VITALS: BP 153/50
--- NOTE | 2019-12-02 04:20 | NUR ---
I have reviewed this patient and I concur with the Shift Assessment completed by the Licensed Practical Nurse today this shift.
[2019-12-02 07:11] LABS: BASOPHILS 0.3 % (0-2); EOSINOPHILS 3.7 % (0-7); HEMATOCRIT 26.4 % (36.0-48.0); HEMOGLOBIN 8.7 g/dL (12-16); IMMATURE GRANULOCYTES 0.4 % (0-5); LYMPHOCYTES 18.5 % (15-50); MCH 31.5 pg (26.0-34.0); MCV 95.7 fL (80.0-100.0); MEAN PLATELET VOLUME 10.1 fL (7.4-10.4); MONOCYTES 9.2 % (2-11); NEUTROPHILS 67.9 % (40-80); PLATELET COUNT 199 10x3/uL (130-400); RBC 2.76 10x6/uL (4.00-5.40); RDW 13.1 % (11.5-14.5); WBC 7.5 10x3/uL (4.8-10.8)
[2019-12-02 07:33] LABS: CALC OSMOLALITY 281 mosm/kg (275-300); CALCIUM 8.5 mg/dL (8.5-10.1); CARBON DIOXIDE 28.8 mmol/L (21.0-32.0); CHLORIDE - SERUM 106 mmol/L (98-107); CREATININE - SERUM 0.6 mg/dL (0.6-1.3); GLUCOSE 110 mg/dL (74-106); SODIUM 141 mmol/L (136-145); UREA NITROGEN 12 mg/dL (7-18); eGFR NON AFRICAN AMERICAN > 90 mL/min (90-120)
[2019-12-02 08:59] VITALS: Ht 152.4 cm; Wt 56.2 kg
[2019-12-02 09:52] VITALS: BP 146/62
--- NOTE | 2019-12-02 14:25 | NUR ---
LAYING IN BED TALKING TO SPEECH THERAPIST. DENIES INCREASED PAIN.
--- NOTE | 2019-12-02 19:20 | NUR ---
ASSISTED TO AND FROM BATHROOM. APPLIED GAUZE TO OPEN WOUND AND TEGADERM THAT WAS DRAINING ON LEFT HIP. DENIES FURTHER NEEDS. PT BACK IN BED. CL IN REACH. A/O X4. LUNGS CLEAR. BOWEL ACTIVE X4. BED IN LOW SIDE RAILS X2. RESP EVEN AND UNLABORED. WILL CONTINUE TO MONITOR.
[2019-12-03 02:18] VITALS: BP 121/37
--- NOTE | 2019-12-03 02:19 | NUR ---
I have reviewed this patient and I concur with the Shift Assessment completed by the Licensed Practical Nurse today this shift.
[2019-12-03 06:51] LABS: BASOPHILS 0.3 % (0-2); EOSINOPHILS 6.3 % (0-7); HEMOGLOBIN 8.7 g/dL (12-16); IMMATURE GRANULOCYTES 0.5 % (0-5); LYMPHOCYTES 17.6 % (15-50); MCH 31.9 pg (26.0-34.0); MCHC 33.5 g/dL (31.0-37.0); MCV 95.2 fL (80.0-100.0); MEAN PLATELET VOLUME 9.4 fL (7.4-10.4); MONOCYTES 11.3 % (2-11); PLATELET COUNT 197 10x3/uL (130-400); RBC 2.73 10x6/uL (4.00-5.40); RDW 13.1 % (11.5-14.5); WBC 5.9 10x3/uL (4.8-10.8)
[2019-12-03 07:05] LABS: ALBUMIN 2.1 g/dL (3.4-5.0); ALKALINE PHOSPHATASE 77 U/L (30-120); ALT (SGPT) 35 U/L (10-68); BILIRUBIN - TOTAL 0.79 mg/dL (0.2-1.3); CALC OSMOLALITY 279 mosm/kg (275-300); CALCIUM 8.4 mg/dL (8.5-10.1); CARBON DIOXIDE 28.9 mmol/L (21.0-32.0); CHLORIDE - SERUM 107 mmol/L (98-107); CREATININE - SERUM 0.7 mg/dL (0.6-1.3); GLUCOSE 102 mg/dL (74-106); POTASSIUM - SERUM 4.1 mmol/L (3.5-5.1); PROTEIN - SERUM 5.2 g/dL (6.4-8.2); SODIUM 140 mmol/L (136-145); UREA NITROGEN 14 mg/dL (7-18); eGFR NON AFRICAN AMERICAN 85 mL/min (90-120)
[2019-12-03 08:00] VITALS: BP 111/55
--- NOTE | 2019-12-03 08:00 | NUR ---
SHIFT ASSMT COMPLETED.
--- NOTE | 2019-12-03 12:00 | NUR ---
SITTING UP IN WC EATING LUNCH.
--- NOTE | 2019-12-03 16:00 | NUR ---
SITTING UP IN WC.
--- NOTE | 2019-12-03 18:45 | NUR ---
PT IN BED, FAMILY VISITING, UP TO TOILET AT INTRODUCTION, NO OTHER NEEDS NOTED, FALL PRECAUTIONS IN PLACE
[2019-12-03 20:13] VITALS: BP 155/64
[2019-12-04 06:46] LABS: ALBUMIN 2.1 g/dL (3.4-5.0); ALKALINE PHOSPHATASE 75 U/L (30-120); ALT (SGPT) 32 U/L (10-68); BILIRUBIN - TOTAL 0.69 mg/dL (0.2-1.3); CALC OSMOLALITY 300 mosm/kg (275-300); CALCIUM 7.4 mg/dL (8.5-10.1); CARBON DIOXIDE 18.7 mmol/L (21.0-32.0); CHLORIDE - SERUM 88 mmol/L (98-107); CREATININE - SERUM 0.6 mg/dL (0.6-1.3); GLUCOSE 95 mg/dL (74-106); POTASSIUM - SERUM 3.5 mmol/L (3.5-5.1); PROTEIN - SERUM 5.1 g/dL (6.4-8.2); SODIUM 151 mmol/L (136-145); UREA NITROGEN 15 mg/dL (7-18); eGFR NON AFRICAN AMERICAN > 90 mL/min (90-120)
[2019-12-04 07:07] LABS: BASOPHILS 0.3 % (0-2); EOSINOPHILS 8.7 % (0-7); HEMATOCRIT 29.3 % (36.0-48.0); HEMOGLOBIN 9.5 g/dL (12-16); IMMATURE GRANULOCYTES 0.5 % (0-5); LYMPHOCYTES 18.4 % (15-50); MCH 31.1 pg (26.0-34.0); MCHC 32.4 g/dL (31.0-37.0); MCV 96.1 fL (80.0-100.0); MEAN PLATELET VOLUME 9.7 fL (7.4-10.4); MONOCYTES 12.4 % (2-11); NEUTROPHILS 59.7 % (40-80); RBC 3.05 10x6/uL (4.00-5.40); RDW 13.4 % (11.5-14.5); WBC 6.2 10x3/uL (4.8-10.8)
[2019-12-04 07:10] LABS: PLATELET COUNT 275 10x3/uL (130-400)
[2019-12-04 08:00] VITALS: BP 137/55
--- NOTE | 2019-12-04 08:00 | NUR ---
SHIFT ASSMT COMPLETED.CL IN REACH.UP OOB TO WC.BREAKFAST GIVEN.
--- NOTE | 2019-12-04 12:00 | NUR ---
UP OOB TO BATHROOM AND BACK.LUNCH GIVEN.
[2019-12-04 19:41] VITALS: BP 136/49
--- NOTE | 2019-12-04 23:57 | NUR ---
PT UP IN CHAIR, GREETED PT, PLACED NAME ON BOARD, NO NEEDS VERBALIZED
[2019-12-05 06:50] LABS: BASOPHILS 0.5 % (0-2); EOSINOPHILS 6.7 % (0-7); HEMATOCRIT 26.1 % (36.0-48.0); HEMOGLOBIN 8.5 g/dL (12-16); IMMATURE GRANULOCYTES 0.5 % (0-5); LYMPHOCYTES 20.7 % (15-50); MCH 31.3 pg (26.0-34.0); MCHC 32.6 g/dL (31.0-37.0); MEAN PLATELET VOLUME 10.1 fL (7.4-10.4); MONOCYTES 13.8 % (2-11); NEUTROPHILS 57.8 % (40-80); PLATELET COUNT 256 10x3/uL (130-400); RBC 2.72 10x6/uL (4.00-5.40); RDW 13.6 % (11.5-14.5); WBC 5.7 10x3/uL (4.8-10.8)
[2019-12-05 08:00] VITALS: BP 155/44
[2019-12-05 08:42] LABS: ALBUMIN 2.3 g/dL (3.4-5.0); ALKALINE PHOSPHATASE 82 U/L (30-120); ALT (SGPT) 34 U/L (10-68); CALC OSMOLALITY 278 mosm/kg (275-300); CALCIUM 8.3 mg/dL (8.5-10.1); CHLORIDE - SERUM 106 mmol/L (98-107); CREATININE - SERUM 0.7 mg/dL (0.6-1.3); GLUCOSE 101 mg/dL (74-106); PROTEIN - SERUM 5.3 g/dL (6.4-8.2); SODIUM 139 mmol/L (136-145); UREA NITROGEN 15 mg/dL (7-18); eGFR NON AFRICAN AMERICAN 85 mL/min (90-120)
[2019-12-05 08:43] LABS: CARBON DIOXIDE 26.2 mmol/L (21.0-32.0); POTASSIUM - SERUM 4.1 mmol/L (3.5-5.1)
--- NOTE | 2019-12-05 09:48 | NUR ---
SITTING UP IN WC IN ROOM. HAS BEEN UP MOVING ABOUT IN ROOM DOING ADL'S. SHE DENIES INCREASED PAIN TO HIP AREA. DENIES NEEDS.
--- NOTE | 2019-12-05 18:02 | NUR ---
SITTING UP IN BED FINISHING SUPPER. DENIES INCREASED PAIN TO LEG AND HIP. CALL LIGHT IN REACH
--- NOTE | 2019-12-05 20:04 | NUR ---
PT IN BED, FAMILY VISITING, PLEASANT, NO NEEDS VERBALIZED, BRUISING TO HIP AND GROIN AREA FROM SURGERY, CONSTANTINE C/D/I
--- NOTE | 2019-12-06 03:31 | NUR ---
PT ASLEEP,BED IN LOW POSITION,NO NEEDS NOTED,FUIDS AND CALL LIGHT IN REACH
[2019-12-06 05:53] LABS: BASOPHILS 0.4 % (0-2); HEMATOCRIT 26.5 % (36.0-48.0); HEMOGLOBIN 8.6 g/dL (12-16); IMMATURE GRANULOCYTES 0.6 % (0-5); LYMPHOCYTES 32.1 % (15-50); MCH 31.5 pg (26.0-34.0); MCHC 32.5 g/dL (31.0-37.0); MCV 97.1 fL (80.0-100.0); MEAN PLATELET VOLUME 9.8 fL (7.4-10.4); MONOCYTES 11.3 % (2-11); NEUTROPHILS 46.6 % (40-80); PLATELET COUNT 256 10x3/uL (130-400); RBC 2.73 10x6/uL (4.00-5.40); RDW 13.9 % (11.5-14.5); WBC 4.7 10x3/uL (4.8-10.8)
[2019-12-06 06:39] LABS: ALBUMIN 2.3 g/dL (3.4-5.0); ANION GAP 11.7 mmol/L (8-16); BILIRUBIN - TOTAL 0.53 mg/dL (0.2-1.3); CARBON DIOXIDE 27.7 mmol/L (21.0-32.0); CREATININE - SERUM 0.8 mg/dL (0.6-1.3); POTASSIUM - SERUM 4.4 mmol/L (3.5-5.1); PROTEIN - SERUM 5.3 g/dL (6.4-8.2)
[2019-12-06 06:49] LABS: CALCIUM 8.5 mg/dL (8.5-10.1)
[2019-12-06 06:56] VITALS: BP 144/58
[2019-12-06 08:03] VITALS: BP 152/55
--- NOTE | 2019-12-06 12:34 | NUR ---
SITTING UP IN BED EATING LUNCH. STATES SHE IS TIRED BUT DENIES INCREASED PAIN. CALL LIGHT IN REACH
--- NOTE | 2019-12-06 15:08 | NUR ---
Nutrition Follow-up: Diet: Regular PO intake: ~77% average x last 12 meals; reports "pretty good" appetite and denies needs from dietary at this time. Last BM: 12/03/19 x 2. WT: 124# (12/02/19), no new WT Meds noted: miralax, lasix. Labs reviewed. Recommend continue current diet. RD following.
--- NOTE | 2019-12-06 16:24 | NUR ---
PT'S SISTER ASK TO TALK TO DR COCHRAN OR HIS NURSE. DR COCHRAN'S OFFICE CALLED AND THIS NURSE SPOKE WITH ZAHRA VILLA AND GAVE HER THE MESSAGE.
--- NOTE | 2019-12-06 16:38 | NUR ---
PATIENT ADMITTED TO REHAB FROM ACUTE FLOOR. HER PCP IS DR. LOFTON, DME AT HOME IS A WALKER, CANE AND SHOWER BENCH. DISCHARGE PLANS ARE FOR PATIENT TO RETURN HOME. WILL CONTINUE TO FOLLOW WITH PATIENT.
--- NOTE | 2019-12-06 17:47 | NUR ---
DR COCHRAN'S NURSE DAISY CAME DOWN AND TALKED TO PT AND HER SISTER.
--- NOTE | 2019-12-06 19:30 | NUR ---
PT SITTING UP IN WHEELCHAIR. SISTER IN ROOM. CL IN REACH. DENIES NEEDS OR PAIN AT THIS TIME. BED IN LOW SIDE RAILS X2. LUNGS CLEAR. BOWEL ACTIVE X4. A/O X4. RESP EVEN AND UNLABORED. LEFT LEG SWOLLEN 3+ PITTING EDEMA. LETI SMILEY IS AWARE OF SWELLING. WILL CONTINUE TO MONITOR.
[2019-12-06 20:11] VITALS: BP 123/63
--- NOTE | 2019-12-07 01:15 | NUR ---
PT LYING IN BED EYES CLOSED RESTING. RR EVEN AND UNLABORED. CL IN REACH
--- NOTE | 2019-12-07 05:53 | NUR ---
I have reviewed this patient and I concur with the Shift Assessment completed by the Licensed Practical Nurse today this shift.
[2019-12-07 07:24] LABS: BASOPHILS 0.4 % (0-2); EOSINOPHILS 7.5 % (0-7); HEMATOCRIT 27.3 % (36.0-48.0); HEMOGLOBIN 8.8 g/dL (12-16); IMMATURE GRANULOCYTES 0.6 % (0-5); LYMPHOCYTES 22.2 % (15-50); MCH 31.7 pg (26.0-34.0); MCHC 32.2 g/dL (31.0-37.0); MCV 98.2 fL (80.0-100.0); MEAN PLATELET VOLUME 9.5 fL (7.4-10.4); MONOCYTES 10.3 % (2-11); PLATELET COUNT 266 10x3/uL (130-400); RBC 2.78 10x6/uL (4.00-5.40); RDW 14.1 % (11.5-14.5); WBC 5.3 10x3/uL (4.8-10.8)
[2019-12-07 07:36] LABS: ALBUMIN 2.4 g/dL (3.4-5.0); ANION GAP 8.8 mmol/L (8-16); BILIRUBIN - TOTAL 0.59 mg/dL (0.2-1.3); CALCIUM 8.7 mg/dL (8.5-10.1); CARBON DIOXIDE 30.5 mmol/L (21.0-32.0); CREATININE - SERUM 0.8 mg/dL (0.6-1.3); POTASSIUM - SERUM 4.3 mmol/L (3.5-5.1); PROTEIN - SERUM 5.4 g/dL (6.4-8.2)
--- NOTE | 2019-12-07 08:00 | NUR ---
SHIFT ASSMT COMPLETED.BREAKFAST GIVEN.CL IN REACH.
--- NOTE | 2019-12-07 12:00 | NUR ---
SITTING UP EATING LUNCH.
--- NOTE | 2019-12-07 14:36 | NUR ---
CARE TEAM MEETING: PATIENT IS PROGRESSING IN THERAPY. TENTIVE DSICHARGE DATE IS 12/16/19. 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 WILL CONTINUE TO FOLLOW WITH PATIENT.
--- NOTE | 2019-12-07 16:19 | NUR ---
CLINICAL UPDATES FAXED TO SANTO GARCIA AT , AUTH # [id number] WITH CONFORMATION RECIEVED
--- NOTE | 2019-12-07 19:23 | NUR ---
AWAKE AND ALERT. UP TO BATHROOM AND BACK TO BED. MEDICATED FOR PAIN. DAUGHTER IN ROOM. NO DISTRESS NOTED. CALL LIGHT IN REACH.
--- NOTE | 2019-12-08 01:12 | NUR ---
RESTING IN BED WITH RESPIRATIONS UNLABORED. EYES CLOSED. NO DISTRESS NOTED. CALL LIGHT IN REACH.
--- NOTE | 2019-12-08 02:44 | NUR ---
CONTINUES SLEEPING WITH NO DISTRESS NOTED. CALL LIGHT IN REACH.
--- NOTE | 2019-12-08 05:39 | NUR ---
QUIET HOURS. NO ACUTE CHANGES IN CONDITION THIS SHIFT. NO DISTRESS NOTED. CALL LIGHT IN REACH.
[2019-12-08 07:37] VITALS: BP 136/56
--- NOTE | 2019-12-08 08:00 | NUR ---
SHIFT ASSMT COMPLETED
--- NOTE | 2019-12-08 18:25 | NUR ---
GREETED PATIENT AND INTRODUCED MYSELF HER NURSE. PATIENT IS LAYING IN BED RESTING AT THIS TIME. RESPIRATIONS EVEN. NO S/S OF DISTRESS. DENIES ANY FURTHER NEEDS AT THIS TIME. CALL LIGHT IN REACH.
--- NOTE | 2019-12-08 19:25 | NUR ---
GREETED PATIENT AND INTRODUCED MYSELF HER NURSE. PATIENT IS LAYING IN BED RESTING AT THIS TIME. RESPIRATIONS EVEN. NO S/S OF DISTRESS. DENIES ANY NEEDS AT THIS TIME. CALL LIGHT IN REACH.
[2019-12-08 19:30] VITALS: BP 154/61
--- NOTE | 2019-12-09 02:59 | NUR ---
PT RESTING QUIETLY WITH EYES CLOSED. RESPIRATIONS EVEN. NO S/S OF DISTRESS. CALL LIGHT IN REACH.
[2019-12-09 06:22] LABS: BASOPHILS 0.2 % (0-2); EOSINOPHILS 8.2 % (0-7); HEMATOCRIT 28.7 % (36.0-48.0); HEMOGLOBIN 9.2 g/dL (12-16); IMMATURE GRANULOCYTES 0.7 % (0-5); LYMPHOCYTES 30.4 % (15-50); MCH 31.7 pg (26.0-34.0); MCHC 32.1 g/dL (31.0-37.0); MEAN PLATELET VOLUME 9.9 fL (7.4-10.4); NEUTROPHILS 50.5 % (40-80); PLATELET COUNT 299 10x3/uL (130-400); RDW 14.6 % (11.5-14.5); WBC 4.4 10x3/uL (4.8-10.8)
[2019-12-09 06:42] LABS: CALC OSMOLALITY 279 mosm/kg (275-300); CALCIUM 8.6 mg/dL (8.5-10.1); CARBON DIOXIDE 31.5 mmol/L (21.0-32.0); CHLORIDE - SERUM 105 mmol/L (98-107); CREATININE - SERUM 0.7 mg/dL (0.6-1.3); GLUCOSE 85 mg/dL (74-106); POTASSIUM - SERUM 4.3 mmol/L (3.5-5.1); SODIUM 141 mmol/L (136-145); UREA NITROGEN 13 mg/dL (7-18); eGFR NON AFRICAN AMERICAN 85 mL/min (90-120)
[2019-12-09 08:26] VITALS: BP 150/49
--- NOTE | 2019-12-09 10:51 | NUR ---
SITTING UP IN WC IN ROOM READING. SHE STATES THE JAMESON HOSE WERE PAINFUL TO HER LEFT LEG LAST NIGHT AND SHE DOES NOT WANT TO WEAR THEM AGAIN. LLE HAS 2+ EDEMA NOTED. LEFT HIP HAS X3 INCISIONS. CALL LIGHT IN REACH
--- NOTE | 2019-12-09 15:40 | NUR ---
RESTING QUIETLY IN BED. EYES CLOSED. NO S/S DISTRESS. CALL LIGHT IN REACH
[2019-12-09 20:00] VITALS: BP 136/52
--- NOTE | 2019-12-09 20:00 | NUR ---
PATIENT RECEIVED SITTING UP IN BED. FRIEND AT BEDSIDE. ASSESSMENT & VITAL SIGNS DONE. SCD'S ON. BED LOW. CALL LIGHT WITHIN REACH. WILL CONTINUE TO MONITOR.
--- NOTE | 2019-12-10 02:39 | NUR ---
PATIENT EYES CLOSED. RESPIRATIONS 18 & EVEN. BED LOW. BEDSIDE TABLE & CALL LIGHT WITHIN REACH. WILL CONTINUE TO MONITOR.
--- NOTE | 2019-12-10 03:00 | NUR ---
I have reviewed this patient and I concur with the Shift Assessment completed by the Licensed Practical Nurse today this shift.
[2019-12-10 08:00] VITALS: BP 168/51
--- NOTE | 2019-12-10 08:00 | NUR ---
PT RESTING IN BED WITH EYES OPEN CALL LIGHT IN REACH NO PROBLEMS WILL MONITER
--- NOTE | 2019-12-10 16:00 | NUR ---
PT RESTING IN BED WITH EYES OPEN CALL LIGHT IN REACH NO PROBLEMS WILL MONITER
--- NOTE | 2019-12-10 16:13 | NUR ---
HAS BEEN UP AND SHOWERED. DENIES INCREASED PAIN OR NEEDS. SISTER IN ROOM VISITING WITH PT.
[2019-12-10 19:23] VITALS: BP 139/45
--- NOTE | 2019-12-11 00:11 | NUR ---
I have reviewed this patient and I concur with the Shift Assessment completed by the Licensed Practical Nurse today this shift.
--- NOTE | 2019-12-11 05:03 | NUR ---
PATIENT EYES CLOSED. RESPIRATIONS 18 & EVEN. BED LOW. CALL LIGHT WITHIN REACH. WILL CONTINUE TO MONITOR.
[2019-12-11 08:00] VITALS: BP 173/62
--- NOTE | 2019-12-11 08:00 | NUR ---
SITTING UP IN BED FOR BREAKFAST. C/O TENDERNESS TO LLE. STATES SHE IS WEAK AND HER LLE HURTS THIS MORNING. CALL LIGHT IN REACH
--- NOTE | 2019-12-11 17:24 | NUR ---
SITTING UP IN BED IN ROOM EATING SUPPER. SISTER IS VISITING. DOPPLER HAS BEEN ORDERED TO LLE TO R/O DVT. CALL LIGHT IN REACH
--- NOTE | 2019-12-11 19:17 | NUR ---
GREETED PATIENT AND INTRODUCED MYSELF HER NURSE. PATIENT IS LAYING IN BED RESTING. FAMILY MEMBER AT BEDSIDE VISITING WITH PATIENT. RESPIRATIONS EVEN. NO S/S OF DISTRESS. DENIES ANY FURTHER NEEDS AT THIS TIME. CALL LIGHT WITHIN REACH ON PATIENTS RIGHT SIDE. PATIENT STATED THAT SHE DIDNT WANT TO WEAR THE SCD'S THIS EVENING DUE TO THE BRUISING ON HER LEFT LEG. EXPLAINED TO PATIENT THAT SHE HAD THE RIGHT TO REFUSE IF SHE WISHES.
[2019-12-11 19:30] VITALS: BP 135/50
--- NOTE | 2019-12-12 00:06 | NUR ---
PT RESTING QUIETLY WITH EYES CLOSED. RESPIRATIONS EVEN. NO S/S OF DISTRESS. CALL LIGHT WITHIN REACH LAYING ON PATIENTS RIGHT SIDE.
[2019-12-12 06:28] LABS: BASOPHILS 0.4 % (0-2); EOSINOPHILS 7.3 % (0-7); HEMATOCRIT 30.3 % (36.0-48.0); HEMOGLOBIN 9.8 g/dL (12-16); IMMATURE GRANULOCYTES 0.4 % (0-5); LYMPHOCYTES 22.7 % (15-50); MCH 31.5 pg (26.0-34.0); MCHC 32.3 g/dL (31.0-37.0); MCV 97.4 fL (80.0-100.0); MEAN PLATELET VOLUME 9.9 fL (7.4-10.4); NEUTROPHILS 60.2 % (40-80); PLATELET COUNT 266 10x3/uL (130-400); RBC 3.11 10x6/uL (4.00-5.40); RDW 14.3 % (11.5-14.5); WBC 5.5 10x3/uL (4.8-10.8)
[2019-12-12 07:21] LABS: CALC OSMOLALITY 280 mosm/kg (275-300); CALCIUM 8.6 mg/dL (8.5-10.1); CARBON DIOXIDE 31.4 mmol/L (21.0-32.0); CHLORIDE - SERUM 104 mmol/L (98-107); CREATININE - SERUM 0.6 mg/dL (0.6-1.3); GLUCOSE 86 mg/dL (74-106); POTASSIUM - SERUM 4.3 mmol/L (3.5-5.1); SODIUM 141 mmol/L (136-145); UREA NITROGEN 14 mg/dL (7-18); eGFR NON AFRICAN AMERICAN > 90 mL/min (90-120)
[2019-12-12 08:00] VITALS: BP 131/69
--- NOTE | 2019-12-12 08:20 | NUR ---
SITTING UP IN BED FOR BREAKFAST. STATES LEFT HIP IS TENDER AND HAS HAD ONE MUSCLE SPASMS ALL NIGHT. BRUISING STILL NOTED TO BACK OF LLE BY KNEE. PEDAL PULSES PRESENT X2.CALL LIGHT IN REACH
--- NOTE | 2019-12-12 11:50 | NUR ---
SITTING UP IN WC IN ROOM FOR LUNCH. HAS BEEN ROLLING HERSELF AROUND IN ROOM. DENIES INCREASING PAIN OR NUMBNESS AND TINGLING. CALL LIGHT IN REACH.
--- NOTE | 2019-12-12 14:45 | NUR ---
Nutrition Follow-up: Diet: Regular PO intake: ~25% average; she reports that her appetite is "better." She had eaten quite a bit of her lunch tray. She denies needs from dietary at this time. Last BM: 12/11/19. WT: 124# (12/02/19), no new weight Meds noted: miralax, lasix. Labs reviewed. Recommend continue current diet. Encouraged PO Intake. Patient again declines oral nutrition supplements. Consider adding appetite stimulant if PO intake does not improve. Need new weight. RD following.
--- NOTE | 2019-12-12 19:10 | NUR ---
GREETED PATIENT AND INTRODUCED MYSELF HER NURSE. PATIENT IS LAYING IN BED VISITING WITH FAMILY MEMBER AT BEDSIDE. RESPIRATIONS EVEN. NO S/S OF DISTRESS. DENIES ANY NEEDS AT THIS TIME. CALL LIGHT WITHIN REACH ON LEFT SIDE OF PATIENT.
[2019-12-12 19:30] VITALS: BP 135/61
--- NOTE | 2019-12-12 23:49 | NUR ---
PT RESTING QUIETLY WITH EYES CLOSED. RESPIRATIONS EVEN. NO S/S OF DISTRESS. CALL LIGHT WITHIN REACH ON RIGHT SIDE OF PATIENT.
[2019-12-13 08:00] VITALS: BP 142/66
--- NOTE | 2019-12-13 08:00 | NUR ---
SHIFT ASSMT COMPLETED.BREAKFAST GIVEN.PAIN LEVEL A 7 TO LEFT LE.WILL MEDICATE ORDERED.
--- NOTE | 2019-12-13 10:39 | NUR ---
NO UPDRAFT GIVEN PT IN THERAPY
--- NOTE | 2019-12-13 12:00 | NUR ---
SITTING UP IN WC.LUNCH GIVEN.CL IN REACH.
--- NOTE | 2019-12-13 15:48 | NUR ---
CLINICAL UPDATES FAXED TO SANTO GARCIA AT [facility] ( ) AUTH. # [id number] WITH TENATIVE DC DATE OF 12/16/19 WITH CONFORMATION RECIEVED
--- NOTE | 2019-12-13 16:00 | NUR ---
UP IN WC.CL IN REACH.HAS VISITOR.DENIES NEEDS.
[2019-12-13 19:45] VITALS: BP 154/50
--- NOTE | 2019-12-13 20:00 | NUR ---
PATIENT RECEIVED SITTING UP IN BED WATCHING TV. FRIEND IN ROOM. ASSESSMENT & VITAL SIGNS DONE. PAIN MEDICATION EFFECTIVE FOR LEFT HIP PAIN. BED LOW. CALL LIGHT WITHIN REACH. WILL CONTINUE TO MONITOR.
--- NOTE | 2019-12-14 02:25 | NUR ---
I have reviewed this patient and I concur with the Shift Assessment completed by the Licensed Practical Nurse today this shift.
--- NOTE | 2019-12-14 04:04 | NUR ---
PATIENT EYES CLOSED. RESPIRATIONS 18 & EVEN. BED LOW. ALARM ON. CALL LIGHT WITHIN REACH. WILL CONTINUE TO MONITOR.
[2019-12-14 06:12] LABS: BASOPHILS 0.2 % (0-2); EOSINOPHILS 10.2 % (0-7); HEMATOCRIT 30.9 % (36.0-48.0); HEMOGLOBIN 9.7 g/dL (12-16); IMMATURE GRANULOCYTES 0.2 % (0-5); LYMPHOCYTES 33.4 % (15-50); MCHC 31.4 g/dL (31.0-37.0); MCV 98.7 fL (80.0-100.0); MONOCYTES 10.7 % (2-11); NEUTROPHILS 45.3 % (40-80); PLATELET COUNT 256 10x3/uL (130-400); RBC 3.13 10x6/uL (4.00-5.40); RDW 14.1 % (11.5-14.5)
[2019-12-14 06:49] LABS: CALC OSMOLALITY 278 mosm/kg (275-300); CALCIUM 8.5 mg/dL (8.5-10.1); CARBON DIOXIDE 31.2 mmol/L (21.0-32.0); CHLORIDE - SERUM 105 mmol/L (98-107); CREATININE - SERUM 0.7 mg/dL (0.6-1.3); GLUCOSE 86 mg/dL (74-106); POTASSIUM - SERUM 4.4 mmol/L (3.5-5.1); SODIUM 140 mmol/L (136-145); UREA NITROGEN 16 mg/dL (7-18); eGFR NON AFRICAN AMERICAN 85 mL/min (90-120)
[2019-12-14 07:03] LABS: WBC 4.1 10x3/uL (4.8-10.8)
[2019-12-14 08:00] VITALS: BP 160/55
--- NOTE | 2019-12-14 08:00 | NUR ---
SHIFT ASSMT COMPLETED.DENIES NEEDS.BREAKFAST GIVEN.
--- NOTE | 2019-12-14 10:38 | NUR ---
SPOKE WITH PATIENT THIS AM AND SHE FEELS THAT HER DISCHARGE HOME ON 12/16/19 IS UNSAFE DUE TO SHE LIVES ALONE AND SHE IS NON WEIGHT BEARING AT THIS TIME. SHE WOULD LIKE A REFERRAL TO [facility] OR [facility]. 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
--- NOTE | 2019-12-14 12:00 | NUR ---
SITTING UP EATING.CL IN REACH.
--- NOTE | 2019-12-14 14:00 | NUR ---
CARE TEAM MEETING: PER PATIENT REQUEST REFERRALS HAVE BEEN FAXED . SHE IS PROGRESSING WELL IN THERAPY. WILL CONTINUE TO FOLLOW WITH PATIENT. TENATIVE DISCHARGE DATE IS 12/16/19.
--- NOTE | 2019-12-14 15:11 | NUR ---
[facility] AND [facility] IS OUT OF NETWORK. A REFERRAL WILL BE SENT TO THE [facility].WILL CONTINUE TO FOLLOW WITH PATIENT.
--- NOTE | 2019-12-14 15:32 | NUR ---
Nutrition Follow-up: Diet: Regular PO intake: ~63% average x last 6 meals Last BM: 12/13/19. WT: 124# (12/02/19), no new weight Meds noted: miralax, lasix. Labs noted. Recommend continue current diet. She does not want oral nutrition supplements. Encourage PO intake. RD following.
--- NOTE | 2019-12-15 03:51 | NUR ---
PT IN BED ASLEEP NO NEEDS NOTED, FLUIDS AND CALL LIGHT WITHIN REACH, PT LEAVES TOMORROW FOR HOME
[2019-12-15 08:00] VITALS: BP 139/49
--- NOTE | 2019-12-15 10:38 | NUR ---
HAS BEEN UP WORKING WITH THERAPY THIS MORNING. DENIES NEEDS OR C/O. STATES HER PAIN IS CONTROLLED WITH CURRENT PAIN MEDS. INCISIONS HAVE STERI STRIPS ON THEM AND NO S/S INFECTION NOTED.
--- NOTE | 2019-12-15 17:26 | NUR ---
SITTING UP IN WC FOR SUPPER. DENIES NEEDS OR C/O. STATES PAIN IS STILL CONTROLLED WITH CURRENT MEDS. CALL LIGHT IN REACH
[2019-12-15 19:35] VITALS: BP 143/52
--- NOTE | 2019-12-16 03:46 | NUR ---
PATIENT EYES CLOSED. RESPIRATIONS 18 & EVEN. BED LOW. CALL LIGHT WITHIN REACH. WILL CONTINUE TO MONITOR.
--- NOTE | 2019-12-16 03:48 | NUR ---
I have reviewed this patient and I concur with the Shift Assessment completed by the Licensed Practical Nurse today this shift.
[2019-12-16 08:00] VITALS: BP 137/44
--- NOTE | 2019-12-16 08:35 | NUR ---
SITTING IN WC IN ROOM EATING BREAKFAST. PT'S SISTER IN ROOM WITH HER HELPING HER PACK. SHE IS ANXIOUS TO DC. DENIES SOB. LEFT HIP INCISIONS ARE OPEN TO AIR AND HAVE STERI STRIPS ON THEM.
--- NOTE | 2019-12-16 09:18 | NUR ---
PATIENT DISCHARGING TO THE [facility]IA [facility]ILITY [facility]. NO HOME HEALTH OR DME NEEDED AT THIS TIME. PATIENT CHOICE FORM FOR SNF SIGNED, COPY GIVEN TO PATIENT AND FILED IN CHART. NO COMPARE DATA REVIEWED THIS ONE FACILITY WAS IN NETWORK. [facility] FORM SIGNED AND EXPLAINED. ONE GIVEN TO PATIENT AND ONE FILED IN CHART.DISCHARGE INSTRUCTIONS FAXED TO PCP, SNF AND REVIEWED WITH PATIENT.
--- NOTE | 2019-12-16 10:00 | NUR ---
DC TO [facility]. REPORT CALLED TO TONE CRUMP. PT TOOK ALL PERSONAL BELONGINGS WITH HER. 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
== END 2019-12-16 12:21 | DRG 560 ==
LOC: D.REHAB 14:50
PROVIDERS: Family Medicine; ADMIT Emergency Medicine; ATTEND Emergency Medicine
DX: S72.002D Fracture of unspecified part of neck of left femur, subsequent encounter for closed fracture with routine healing (principal); D62 Acute posthemorrhagic anemia; R33.9 Retention of urine, unspecified; I10 Essential (primary) hypertension; R73.9 Hyperglycemia, unspecified; M79.18 Myalgia, other site; J44.9 Chronic obstructive pulmonary disease, unspecified; M19.90 Unspecified osteoarthritis, unspecified site; F32.9 Major depressive disorder, single episode, unspecified; S01.01XD Laceration without foreign body of scalp, subsequent encounter; W19.XXXD Unspecified fall, subsequent encounter; S00.83XD Contusion of other part of head, subsequent encounter; R42 Dizziness and giddiness; K21.9 Gastro-esophageal reflux disease without esophagitis

== ENCOUNTER 2020-12-14 15:02 | Emergency (ER) | payer MEDICARE ==
[~2020-12-14] VITALS: Ht 152.4 cm; Wt 56.4 kg
[~2020-12-14 15:02] MED LIST changes: +NORVASC2.5 MG PO; +VITAMIN D-32000 UNI1 PO
[2020-12-14 15:08] VITALS: Ht 152.4 cm; Wt 56.4 kg
[2020-12-14 16:18] LABS: BASOPHILS 0.4 % (0-2); EOSINOPHILS 2.1 % (0-7); HEMATOCRIT 36.7 % (36.0-48.0); HEMOGLOBIN 12.3 g/dL (12-16); IMMATURE GRANULOCYTES 0.4 % (0-5); LYMPHOCYTE ABS# 1.68 10x3/uL (1.18-3.74); LYMPHOCYTES 29.9 % (15-50); MCH 32.1 pg (26.0-34.0); MCHC 33.5 g/dL (31.0-37.0); MCV 95.8 fL (80.0-100.0); MEAN PLATELET VOLUME 9.6 fL (7.4-10.4); MONOCYTES 8.2 % (2-11); NEUTROPHIL ABS# 3.32 10x3/uL (1.56-6.13); PLATELET COUNT 217 10x3/uL (130-400); RBC 3.83 10x6/uL (4.00-5.40); RDW 12.8 % (11.5-14.5); WBC 5.6 10x3/uL (4.8-10.8)
[2020-12-14 16:43] LABS: APTT 25.9 SECONDS (22.8-39.4); INR 0.99 (0.85-1.17); PROTIME 12.1 SECONDS (11.6-15.0)
[2020-12-14 16:46] LABS: CALC OSMOLALITY 283 mosm/kg (275-300); CALCIUM 8.9 mg/dL (8.5-10.1); CARBON DIOXIDE 28.9 mmol/L (21.0-32.0); CHLORIDE - SERUM 106 mmol/L (98-107); GLUCOSE 110 mg/dL (74-106); POTASSIUM - SERUM 4.5 mmol/L (3.5-5.1); SODIUM 141 mmol/L (136-145); UREA NITROGEN 19 mg/dL (7-18); eGFR NON AFRICAN AMERICAN 56 mL/min (90-120)
[2020-12-14 17:06] LABS: ALBUMIN 3.2 g/dL (3.4-5.0); ALKALINE PHOSPHATASE 63 U/L (30-120); ALT (SGPT) 25 U/L (10-68); CKMB 2.4 U/L (0.0-3.6); CREATINE KINASE 141 UL (21-215); MAGNESIUM - SERUM 1.9 mg/dL (1.8-2.4); PROTEIN - SERUM 6.4 g/dL (6.4-8.2)
[2020-12-14 17:07] LABS: BILIRUBIN - TOTAL 0.04 mg/dL (0.2-1.3); TROPONIN-I < 0.017 ng/mL (0.000-0.060)
[2020-12-14 17:23] LABS: ERYTHROCYTE SEDIMENTATION RATE 11 mm/hr (0-30)
[2020-12-14 18:19] VITALS: BP 139/52
== END 2020-12-14 18:22 | disposition home or self-care (01) ==
LOC: D.ER 15:02
PROVIDERS: Emergency Medicine
DX: R25.3 Fasciculation (principal); J44.9 Chronic obstructive pulmonary disease, unspecified; K21.9 Gastro-esophageal reflux disease without esophagitis; N18.9 Chronic kidney disease, unspecified

== ENCOUNTER → 2021-02-18 07:42 | Outpatient (CLI) | payer MEDICARE ==
[2020-12-14 15:08] VITALS: BMI 24.2
--- NOTE | ~2021-02-18 | EC ---
PATIENT:SAURABH PASCAL DATE OF SERVICE: 02/18/21 SEX: F MEDICAL RECORD: [id number] DATE OF : 37 [facility] AGE OF PATIENT: 86 ADMISSION DATE: 02/18/21 REFERRING PHYSICIAN: INTERPRETING PHYSICIAN: SUNIL DENIS MD ECHOCARDIOGRAM REPORT ECHO CHARGES 4 ECHO COMPLETE Date: 02/18/21 CLINICAL DIAGNOSIS: TIA ECHOCARDIOGRAPHIC MEASUREMENTS (adult normal given) AC root (d.<3.7cm) 2.8 cm LV Septum d (<1.2 cm> 1.0 cm Valve Excursion 1.4 cm LV Septum (systole) 1.6 cm Left Atria (s.<4.0cm> 3.2 cm LVPW d(<1.2cm) 0.9 cm RV (d.<2.3cm) 2.9 cm LVPW (sytole) 1.1 cm LV diastole(<5.6CM) 4.1 cm MV E-F(>70mm/sec) cm LV systole 2.6 cm LVOT Diameter 1.6 cm MV exc.(>10mm) 1.4 cm Est.ejection fraction (50-75%) % DOPPLER: LVIT cm/sec A 98 cm/sec E 93 cm/sec LA cm/sec RVSP 33 mmHg LVOT 74 cm/sec AOP1/2T m/s Asc. Ao 155 cm/sec RVOT 52 cm/sec RA cm/sec PA 84 cm/sec AV Gradient Peak 9.6 mmHg AV Mean 5.3 mmHg AV Area 0.8 cm MV Gradient Peak 4.8 mmHg MV Mean 1.8 mmHg MV Area cm COMMENTS: Pressing Machine Operator: Sol [facility] Wax Cutter: 3 Dr. Hercules TAPE# Pericardial Effusion N DATE OF SERVICE: Adequate 2D, color-flow imaging, spectral Doppler, and M-Mode. FINDINGS: No LVH. LV internal dimension is normal. Wall motion is normal. EF is greater than or equal to 55%. Aortic valve is tricuspid. No evidence of stenosis by Doppler interrogation. Left atrium is normal at 3.2 cm. Mitral valve shows no prolapse. Trace MR. Right-sided is grossly normal. Mild TR. TRANSINT:[id number] Voice Confirmation ID: [id number] DOCUMENT ID: [id number] ECHOCARDIOGRAM REPORT [id number] PASCAL,SAURABH SUNIL CALLES MD CC: [id number] DICTATION DATE: 02/20/21 1615 GLASS INSERTER: 02/20/21 2324 DEP CLI 02/18/21 [id number] [place] [address]
== END | disposition home or self-care (01) ==
LOC: D.MRI 07:42
PROVIDERS: ATTEND Psychiatry & Neurology Neurology
DX: G45.9 Transient cerebral ischemic attack, unspecified (principal)